=== PATIENT | female | born 1990 | race African-American/Black ===

== ENCOUNTER 2024-10-25 08:22 | Emergency (ER) | payer MEDICAID, OTHER ==
[~2024-10-25] VITALS: Ht 165.1 cm; Wt 91.0 kg
[2024-10-25 08:32] VITALS: O2SAT 99
[2024-10-25 09:51] LABS: BASOPHILS % 0.8 % (0.0-2.0); EOSINOPHILS % 0.4 % (0.0-5.0); HEMATOCRIT. 37.0 % (36.0-48.0); HEMOGLOBIN. 11.7 g/dL (12.0-16.0); LYMPHOCYTES % 21.8 % (20.0-50.0); MEAN PLATELET VOLUME 9.7 fl (7.4-10.4); MONOCYTES % 5.7 % (2.0-8.0); NEUTROPHILS % 71.3 % (40.0-76.0); PLATELET 206 x1000/uL (130-400); RED BLOOD CELL COUNT 4.65 mill/uL (4.2-5.4); RED CELL DISTRIBUTION WIDTH 16.9 % (11.6-14.6)
[2024-10-25] MEDS: KETOROLAC 30MG/ML VIAL IM ONE (10:07)
[2024-10-25 10:08] LABS: CREATININE 0.7 mg/dL (0.6-1.0); TROPONIN I HIGH SENSITIVITY < 4 ng/L (3.0-34); UREA NITROGEN BLOOD 11 mg/dL (9-23)
[2024-10-25 10:10] LABS: ASPARTATE AMINOTRANSFERASE 14 IU/L (<34); BILIRUBIN DIRECT 0.1 mg/dL (<=3.0); BILIRUBIN TOTAL 0.5 mg/dL (0.1-1.0)
[2024-10-25 10:11] LABS: PROTEIN TOTAL 7.7 g/dL (6.0-8.3)
[2024-10-25 10:24] LABS: HCG SCREEN NEGATIVE
[2024-10-25] MEDS ORDERED: IBUP-2029 MT (10:27)
[2024-10-25 11:26] VITALS: BP 149/87; PULSE 74; RESP 16; TEMP 36.6; O2SAT 99
== END 2024-10-25 11:03 | disposition home or self-care (01) ==
LOC: ER 08:22
DX: G43.909 Migraine, unspecified, not intractable, without status migrainosus (principal); R07.89 Other chest pain
CPT/HCPCS: 80076; 80048; 81025; 84703; 85025; 84484; 36415; 71045; 93005; 96372; 99285; J1885; Z7610